=== PATIENT | female | born 1990 | race African-American/Black ===

== ENCOUNTER 2017-01-28 19:29 | Emergency (ER) | payer OTHER ==
[~2017-01-28] VITALS: Ht 162.6 cm; Wt 83.5 kg
[~2017-01-28 19:29] MED LIST: FER325 PO
[2017-01-28 19:35] VITALS: Ht 162.6 cm; Wt 83.5 kg
--- NOTE | 2017-01-28 20:13 | ERD ---
ER Documentation Chief Complaint Date/Time DATE: 01/28/17 TIME: 20:09 Chief Complaint 16 weeks , bleeding during intercorse, 1 hour ago, no pain HPI 26-year-old female who is 7, para 3, with history of 2 abortions and 1 miscarriage comes in, she states she thinks she is [id number] weeks with vaginal bleeding during and after it having intercourse today. She states she has mild to moderate bleeding with few clots, which has slowed down now. She has had an ultrasound at [facility] so far, she reports that the previous ultrasound was normal. There is no pain associated. She has not had any fevers, chills or dizziness. ROS All systems reviewed and are negative except as per history of present illness. Medications Home Meds Reported Medications Ferrous Sulfate* (Ferrous Sulfate*) 325 Mg Tabec, 1 MG PO DAILY, TAB 06/03/14 Allergies Allergies: Coded Allergies: No Known Allergy (Verified , 06/02/14) PMhx/Soc History of Surgery: Yes (C/SECTION X 2) Anesthesia Reaction: No Hx Neurological Disorder: No Hx Respiratory Disorders: No Hx Cardiac Disorders: No Hx Psychiatric Problems: No Hx Miscellaneous Medical Probl: No Hx Alcohol Use: Yes (ON OCCATION) Hx Substance Use: Yes (CANNABIS) Hx Tobacco Use: Yes Smoking Status: Never smoker Physical Exam Vitals Vital Signs Date Time Temp Pulse Resp B/P Pulse Ox O2 Delivery O2 Flow Rate FiO2 01/28/17 19:35 97.8 100 18 138/82 99 Physical Exam General: Well-developed, well-nourished. The patient appears in no acute distress. HEENT: Head is normocephalic, atraumatic. No scleral icterus. Neck: Supple. Nontender. Lungs: Clear to auscultation. Normal air movement. Heart: Regular rate and rhythm. S1 and S2 are normal. No murmurs, gallops, or rubs. Abdomen: Soft, nontender, nondistended. Bowel sounds are normoactive. Extremities: No clubbing or cyanosis. Normal pulses. Moving extremities x 4. No weakness. Neurologic: Alert and oriented 3. No focal deficits. Skin: Normal turgor. No rash or lesions. Result Diagram: 01/28/172024 Results 24 hrs Laboratory Tests Test 01/28/17 20:00 01/28/17 20:25 Urine Color YELLOW Urine Clarity SLIGHTLY CLOUDY Urine pH 6.0 Urine Specific [place] 1.025 Urine Ketones NEGATIVEmg/dL Urine Nitrite NEGATIVEmg/dL Urine Bilirubin NEGATIVEmg/dL Urine Urobilinogen NEGATIVEmg/dL Urine Leukocyte Esterase 2+Sanket/ul Urine Microscopic RBC > 182/HPF Urine Microscopic WBC 16/HPF Urine Squamous Epithelial Cells MODERATE/HPF Urine Bacteria FEW/HPF Urine Mucus FEW/HPF Urine Hemoglobin 3+mg/dL Urine Glucose NEGATIVEmg/dL Urine Total Protein 1+mg/dl White Blood Count 13.410^3/ul Red Blood Count 4.0410^6/ul Hemoglobin 11.3g/dl Hematocrit 33.8% Mean Corpuscular Volume 83.7fl Mean Corpuscular Hemoglobin 28.0pg Mean Corpuscular Hemoglobin Concent 33.4g/dl Red Cell Distribution Width 15.2% Platelet Count 15358^3/UL Mean Platelet Volume 9.3fl Neutrophils % 73.0% Lymphocytes % 18.9% Monocytes % 5.0% Eosinophils % 2.5% Basophils % 0.2% Nucleated Red Blood Cells % 0.0/100WBC Neutrophils # 9.810^3/ul Lymphocytes # 2.510^3/ul Monocytes # 0.710^3/ul Eosinophils # 0.310^3/ul Basophils # 0.010^3/ul Nucleated Red Blood Cells # 0.010^3/ul Beta HCG, Quantitative 45125.0mIU/ml DIAGNOSTIC IMAGING REPORT Patient: LOGAN JOSEPH : 1990 Age: 26 Sex: F MR #: [id number] DOS: 01/28/172000 Ordering MD: JOSE KO PA-C Location: [facility] Room/Bed: PROCEDURE: US OB. CLINICAL INDICATION: Size and dates , vaginal bleeding TECHNIQUE: Multiple sonographic images of the pelvis and gravid uterus were obtained. The images were reviewed on a PACS workstation. COMPARISON: No prior studies are available for comparison. FINDINGS: There is a single viable intrauterine gestation. Cardiac activity is present with 163 beats per minute. There is a variable presentation. The placenta is anterior. There is no evidence for an abruption or placenta previa. There is a normal amount of amniotic fluid with a MVP= 6.0 cm. Measurements were made in order to determine age. The results are as follows: BPD = 5.6 cm HC = 20.2 cm AC = 18.5 cm FL = 4.1 cm Estimated gestational age of approximately 23 weeks and 0 days based on ultrasound measurements. The estimated date of delivery is 05/27/17, based on ultrasound measurements. The EFW = 574 g RPTAT: AA IMPRESSION: Single viable intrauterine gestation of approximately 23 weeks and 0 days based on ultrasound measurements. .Yovanny Mckeon MD, MD Date Time Electronically viewed and signed by .Yovanny Mckeon MD, MD on 01/28/2017 20: 46 .S/ CC: JOSE KO PA-C Procedures/MDM 26-year-old female is found to be 23 weeks on ultrasound today coming in with vaginal bleeding after having intercourse today. Patient thought that she might of been less than 20 weeks, ultrasound shows a single live intrauterine . She will be discharged from the emergency department and will be sent to OB triage for further monitoring. Type and Rh is A+, no indication for RhoGam. Ultrasound is unremarkable, there is normal amniotic fluid, no placenta abruptio or previa. Departure Diagnosis: Primary Impression: Vaginal bleeding Condition: Stable JOSE KO PA-C Jan 28, 2017 20:13
[2017-01-28 20:36] LABS: BASOPHILS % 0.2 % (0.0-2.0); EOSINOPHILS # 0.3 10^3/ul (0.0-0.5); EOSINOPHILS % 2.5 % (0.0-7.0); HEMATOCRIT 33.8 % (37.0-47.0); HEMOGLOBIN 11.3 g/dl (12.0-16.0); LYMPHOCYTES # 2.5 10^3/ul (0.8-2.9); LYMPHOCYTES % 18.9 % (15.0-51.0); MEAN CORPUSCULAR HGB CONC 33.4 g/dl (32.0-37.0); MEAN CORPUSCULAR VOLUME 83.7 fl (82.0-101.0); MEAN PLATELET VOLUME 9.3 fl (7.4-10.4); MONOCYTE # 0.7 10^3/ul (0.3-0.9); NEUTROPHIL # 9.8 10^3/ul (1.6-7.5); PLATELET COUNT 287 10^3/UL (140-415); RED BLOOD COUNT 4.04 10^6/ul (4.20-5.40); RED CELL DISTRIBUTION WIDTH 15.2 % (11.5-14.5); WHITE BLOOD COUNT 13.4 10^3/ul (4.8-10.8)
[2017-01-28 20:44] LABS: ADD UMIC YES; UR ASCORBIC ACID NEGATIVE (NEGATIVE); UR BACTERIA FEW /HPF (NONE SEEN); UR BILIRUBIN (Dip) NEGATIVE (NEGATIVE); UR BLOOD (Dip) 3+ mg/dL (NEGATIVE); UR CLARITY SLIGHTLY CLOUDY (CLEAR); UR COLOR YELLOW (YELLOW); UR GLUCOSE (Dip) NEGATIVE (NEGATIVE); UR KETONES (Dip) NEGATIVE (NEGATIVE); UR LEUKOCYTE ESTERASE (Dip) 2+ Leu/ul (NEGATIVE); UR MUCUS FEW /HPF (NONE SEEN); UR NITRITE (Dip) NEGATIVE (NEGATIVE); UR RBC > 182 /HPF (0-5); UR SPECIFIC GRAVITY (Dip) 1.025 (1.003-1.030); UR SQUAMOUS EPITHELIAL CELL MODERATE /HPF (FEW); UR TOTAL PROTEIN (Dip) 1+ mg/dl (NEGATIVE); UR UROBILINOGEN (Dip) NEGATIVE (NEGATIVE)
--- NOTE | 2017-01-28 20:47 | RADRPT ---
PROCEDURE: US OB. CLINICAL INDICATION: Size and dates , vaginal bleeding TECHNIQUE: Multiple sonographic images of the pelvis and gravid uterus were obtained. The images were reviewed on a PACS workstation. COMPARISON: No prior studies are available for comparison. FINDINGS: There is a single viable intrauterine gestation. Cardiac activity is present with 163 beats per min jayson. There is a variable presentation. The placenta is anterior. There is no evidence for an abruption or placenta previa. There is a normal amount of amniotic fluid with a MVP= 6.0 cm. Measurements were made in order to determine age. The results are as follows: BPD =5.6 cm HC =20.2 cm AC =18.5 cm FL =4.1 cm Estimated gestational age of approximately 23 weeks and 0 days based on ultrasound measurements. The estimated date of delivery is 05/27/17, based on ultrasound measurements. The EFW = 574 g RPTAT: AA IMPRESSION: Single viable intrauterine gestation of approximately 23 weeks and 0 days based on ultrasound measu rements. .Yovanny Mckeon MD, MD Date Time Electronically viewed and signed by .Yovanny Mckeon MD, on 01/28/2017 20:46 .S/
== END 2017-01-28 22:29 | disposition home or self-care (01) ==
LOC: FTE 19:29
DX: O46.90 Antepartum hemorrhage, unspecified, unspecified trimester (principal); Z3A.23 23 weeks gestation of pregnancy; Z87.891 Personal history of nicotine dependence
CPT/HCPCS: 36415; 76805; 81001; 84702; 85025; 86900; 86901; Z7502

== ENCOUNTER 2017-01-28 22:35 | Outpatient (CLI) | payer OTHER ==
[~2017-01-28] VITALS: Ht 162.6 cm; Wt 83.1 kg
[2017-01-28 22:46] VITALS: BP 131/72; PULSE 60
[2017-01-28 23:11] VITALS: Ht 162.6 cm; Wt 83.1 kg
--- NOTE | 2017-01-28 23:53 | RADRPT ---
PROCEDURE: Obstetrical ultrasound greater than 14 weeks CLINICAL INDICATION: Vaginal bleeding. Evaluate cervical length TECHNIQUE: Real time sonographic imaging of the gravid uterus is performed transabdominally and im ages of the cervix are submitted to the PACS for review COMPARISON: Obstetrical ultrasound 01/28/2017 FINDINGS: The cervical os is closed with a normal cervical length of 3.6 cm. RPTAT:HJJR IMPRESSION: 1. Single viable intrauterine gestation with the cervical length estimated at 3.6 cm. Physician Latanya Date Time Electronically viewed and signed by Physician Latanya on 01/28/2017 23:53 JR/
--- NOTE | 2017-01-29 01:20 | PN ---
Triage Information Date/Time January 29, 2017 Weeks of Gestation 23w by US, as no care. : 7 Para: 3 Diabetes: none Hypertention: none Additional information Pt came in reporting vaginal bleeding after intercourse. POBHx: term IUP x 1, delivery under 30 weeks x 2. PMHx: none. PSHx: none. NKDA Objective Vital Signs Date Time Temp Pulse Resp B/P Pulse Ox O2 Delivery O2 Flow Rate FiO2 01/28/17 22:46 98.0 60 131/72 Room Air Heart Rate: 130's Contractions: None Exam US: jorgensen. Anterior placenta. No evidence of abruption or previa. Normal GUSTAVO with a MVP of 6. EFW 574 grams c/w 23 weeks. Cx length 3.6 cm and closed. No evidence of bleeding since the pt has been here. Assessment/Plan A: IUP at 23 weeks. No care. Postcoital bleeding. P: D/C home. Pelvic rest x 4 weeks. Pt strongly encouraged to seek care as there are things that can be done to possibly help her keep from having a baby early that cannot be done in the OB Triage setting. HARDEEP PASCAL MD Jan 29, 2017 01:20
--- NOTE | 2017-01-29 02:33 | TRIAGE ---
OB Triage Datetime Report Generated by CPN: 01/29/2017 02:32 Datetime: 01/29/2017 01:06 Stage of : OB Triage Labor Evaluation Frequency: 0 Monitor Mode: External Resting Tone [place]: Relaxed Datetime: 01/28/2017 22:58 Assessment Type: Triage Maternal Assessment Level of Consciousness: Fully Conscious DTR's/Clonus: DTRs 2+; No Clonus Headache: Denies Blurred Vision: No Respiratory Effort: Unlabored; Regular Rhythm; Equal Expansion Breath Sounds, Left: Clear and Equal Breath Sounds, Right: Clear and Equal Nausea/Vomiting: Denies RUQ Epigastric Pain: Denies Lower Extremities Edema: None Degree: None Upper Extremities Edema: None Degree: None Facial Edema: None Fall Risk Assessment History of Falling: (0) No Secondary Diagnosis: (0) No Ambulatory Aid: (0) Bedrest/Nurse Assist IV Therapy: (0) No Gait: (0) Normal/Bedrest/Immobile Mental Status: (0) Oriented to Own Ability Fall Score: 0 Fall Risk Score Definition: No Risk: No action required Datetime: 01/28/2017 22:57 EGA: 23.0 Datetime: 01/28/2017 22:30 Time of Arrival: 01/28/2017 22:30 Arrived By: Wheelchair Arrived From: Emergency Dept Chief Complaint: VAGINAL BLEEDING P SEXUAL INTERCOURSE Movement: Present Contractions: Denies/Absent Rupture of Membranes: Denies Vaginal Bleeding: None Vaginal Discharge: Present Recent Sexual Intercouse: Yes Abdominal Trauma: Not Applicable Patient Complaints: Other Additional Patient Complaints: Pt with no pncr pnc was seen in ER prior to being sent to ob triage . UA, 2nd/3rd trim U/S done in ER. Initial Plan: VS, DOPPLER, TOCO,, CL
== END 2017-01-29 01:35 | disposition home or self-care (01) ==
LOC: OBT 22:35 → L-D 22:40 → OBT 01-29 01:35
PROVIDERS: ATTEND Obstetrics & Gynecology
DX: O46.8X2 Other antepartum hemorrhage, second trimester (principal); Z3A.23 23 weeks gestation of pregnancy
CPT/HCPCS: 76817; Z7500; G0463

== ENCOUNTER 2017-02-28 06:20 | Inpatient (IN) | payer OTHER ==
[~2017-02-28] VITALS: Ht 162.6 cm; Wt 83.1 kg
[2017-02-28] VITALS (7 sets, daily range): BP systolic 108–131; BP diastolic 54–79; PULSE 55–90; RESP 18–22; Ht 162.6 cm; Wt 83.1 kg
[2017-02-28] MEDS ORDERED: LACTATED RINGER'S 1,000 ML IV SCH (06:51)
[2017-02-28] MEDS ORDERED: TERBUTALINE 1 ML ONE (06:59)
[2017-02-28] MEDS ORDERED: AMPICILLIN 2 GM/NS (PMX) 100 ML IV ONE ×2 (07:00→10:00)
[2017-02-28] MEDS ORDERED: LIDOCAINE 1% (MPF) 30 ML INJ INJ PRN ×2 (07:00→10:00)
[2017-02-28] MEDS ORDERED: CARBOPROST 250 MCG INJ IM PRN ×2 (07:00→10:00)
[2017-02-28] MEDS ORDERED: METHYLERGONOVINE 0.2 MG INJ IM PRN ×2 (07:00→10:00)
[2017-02-28] MEDS ORDERED: TERBUTALINE 1 MG/ML INJ SC ONE ×2 (07:00→10:00)
[2017-02-28] MEDS ORDERED: OXYTOCIN 30 UNITS/LR 500 ML IV PRN ×2 (07:00→10:00)
[2017-02-28] MEDS ORDERED: MAGNESIUM SULFATE 4 GM/100 ML 100 ML IV ONE ×2 (07:00→10:00)
[2017-02-28] MEDS ORDERED: OXYTOCIN 30 UNITS/LR 500 ML IV SCH ×4 (07:00→10:00)
[2017-02-28] MEDS ORDERED: MISOPROSTOL 200 MCG TAB PR PRN ×2 (07:00→10:00)
[2017-02-28] MEDS ORDERED: BETAMET NA PHOS/AC(6 MG/ML) 5ML INJ IM SCH ×4 (07:30→10:00)
[2017-02-28] MEDS ORDERED: MAGNESIUM SULFATE 20 GM/500 ML 500 ML IV SCH ×2 (07:30→09:51)
--- NOTE | 2017-02-28 07:35 | TRIAGE ---
OB Triage Datetime Report Generated by CPN: 02/28/2017 07:35 Datetime: 02/28/2017 07:00 Stage of : OB Triage Temperature Route: Oral Labor Evaluation Frequency: IRREG Monitor Mode: External Quality: Moderate Pattern: Normal: <= 5 Contractions in 10 Minutes Resting Tone [place]: Relaxed Heart Rate FHR Baseline Rate: 150 Monitor Mode: External US Variability: Moderate 6-25 bpm Accelerations: 15X15 Decelerations: Variable Category: Category II Pain Assessment Pain Scale: 9 Pain Presence: Intermittent Pain Type: Crushing Pain Location: Abdomen Pain Goal: 3 Pain Relief Measures: Comfort Measures Datetime: 02/28/2017 06:46 Vaginal Exam Dilatation (cms): 3.5 Effacement (%): 90 Station: -1 Exam By: JUSTINE Vaginal Bleeding: None Cervix, Consistency: Soft Cervix, Position: Posterior Datetime: 02/28/2017 06:40 Assessment Type: Triage Maternal Assessment Level of Consciousness: Fully Conscious DTR's/Clonus: DTRs 2+; No Clonus Headache: Denies Blurred Vision: Yes Respiratory Effort: Unlabored Breath Sounds, Left: Clear and Equal Breath Sounds, Right: Clear and Equal Nausea/Vomiting: Denies RUQ Epigastric Pain: Denies Lower Extremities Edema: None Degree: None Upper Extremities Edema: None Degree: None Facial Edema: None Fall Risk Assessment History of Falling: (0) No Secondary Diagnosis: (15) Yes (Annotations: C/S X2 HX OF DRUG ABUSE, METHAMPHETAMINES, MARIJUANA) Ambulatory Aid: (0) Bedrest/Nurse Assist IV Therapy: (0) No Gait: (20) Impaired (Annotations: SEVERE PAIN FROM [facility]) Mental Status: (0) Oriented to Own Ability Fall Score: 35 Fall Risk Score Definition: Low Risk: Please see standard fall prevention interventions Datetime: 02/28/2017 06:39 Arrived By: Wheelchair Arrived From: Home Chief Complaint: SROM SINCE 02/27/17 AT 0300 AND CXS JUST STARTED Movement: Present Time Contractions Began: 02/27/2017 03:00 Rupture of Membranes: Ruptured Vaginal Bleeding: None Time Provider Notified: 02/28/2017 06:40 Provider Notified: BOO Initial Plan: EFM,ASSESSMENT, CALL MD FOR ORDERS Datetime: 01/29/2017 00:53 Stage of : OB Triage Datetime: 01/29/2017 00:00 Labor Evaluation Frequency: 0 Monitor Mode: External Resting Tone [place]: Relaxed Contraction Comments: pt states cramping is gone. Abdomen remains soft to palpation. Waiting for r esults of U/S Datetime: 01/28/2017 22:58 Fall Score: 0 Fall Risk Score Definition: No Risk: No action required Datetime: 01/28/2017 22:57 EGA: 23.0 Datetime: 01/28/2017 22:49 Heart Rate FHR Baseline Rate: 150 Monitor Mode: External US Comments: FHTS present, audible. Datetime: 01/28/2017 22:48 Monitor Mode: External Resting Tone [place]: Relaxed Contraction Comments: Applied Datetime: 01/28/2017 22:44 Stage of : OB Triage
[2017-02-28] MEDS ORDERED: TERBUTALINE 1 MG/ML INJ SC STA ×2 (07:38→09:51)
[2017-02-28 07:39] LABS: ADD UMIC YES; UR AMORPHOUS CRYSTAL FEW /HPF (NONE SEEN); UR ASCORBIC ACID NEGATIVE (NEGATIVE); UR BILIRUBIN (Dip) NEGATIVE (NEGATIVE); UR BLOOD (Dip) NEGATIVE (NEGATIVE); UR CLARITY SLIGHTLY CLOUDY (CLEAR); UR COLOR YELLOW (YELLOW); UR GLUCOSE (Dip) NEGATIVE (NEGATIVE); UR KETONES (Dip) NEGATIVE (NEGATIVE); UR LEUKOCYTE ESTERASE (Dip) 2+ Leu/ul (NEGATIVE); UR MUCUS FEW /HPF (NONE SEEN); UR NITRITE (Dip) NEGATIVE (NEGATIVE); UR RBC 1 /HPF (0-5); UR SQUAMOUS EPITHELIAL CELL FEW /HPF (FEW); UR TOTAL PROTEIN (Dip) NEGATIVE (NEGATIVE); UR UROBILINOGEN (Dip) 1+ mg/dL (NEGATIVE)
--- NOTE | 2017-02-28 07:48 | RADRPT ---
PROCEDURE: US OB. CLINICAL INDICATION: labor TECHNIQUE: Multiple sonographic images of the pelvis were obtained. Transabdominal imaging only w as performed. The images were reviewed on a PACS workstation. COMPARISON: 01/28/2017 FINDINGS: Single intrauterine gestation. Breech presentation. heart rate is 128 bpm. Measurements were made in order to determine age. The results are as follows: BPD = 6.83 cm HC = 24.05 cm AC = 22.46 cm FL = 4.57 cm Gestational age is 26 weeks 3 days and DIEGO is 06/03/2017 by ultrasound criteria. EFW = 909 g +/- 136 g (7 %). The placenta is anterior. There is no evidence for an abruption or placenta previa. GUSTAVO measures 0.9 cm, below normal limits. IMPRESSION: 1. Single live intrauterine gestation of approximately 26 weeks 3 days by ultrasound criteria. 2. Breech presentation. 3. Severe oligohydramnios. RPTAT: EE .Inder Gates MD, MD Date Time Electronically viewed and signed by .Inder Gates MD, MD on 02/28/2017 07:48 .R/
[2017-02-28] MEDS ORDERED: MAGNESIUM SULFATE (GM) 50% 2 ML INJ IM STA ×2 (07:49→09:51)
[2017-02-28] MEDS ORDERED: CEFAZOLIN 2 GM/50 ML (PMX) 50 ML IV STA (07:51)
[2017-02-28] MEDS ORDERED: CEFAZOLIN 2 GM/50 ML (PMX) 50 ML IVPB ONE (07:52)
[2017-02-28] MEDS ORDERED: NEOSTIGMINE 3 MG/3 ML SYRINGE ONE (08:00)
[2017-02-28] MEDS ORDERED: CEFAZOLIN 1 GM INJ ONE (08:00)
[2017-02-28] MEDS ORDERED: LACTATED RINGER'S 1,000 ML IV PRN ×2 (08:00→09:51)
[2017-02-28] MEDS ORDERED: SUCCINYLCHOLINE CHLORIDE 100 MG/5 ML SYG IV ONE (08:00)
[2017-02-28] MEDS ORDERED: LIDOCAINE 2% (SDV) 5 ML INJ ONE (08:00)
[2017-02-28] MEDS ORDERED: PROPOFOL 200 MG INJ ONE (08:00)
[2017-02-28] MEDS ORDERED: morphine 10 MG INJ ONE (08:11)
[2017-02-28 08:32] LABS: BARBITURATES Negative (NEGATIVE); BENZODIAZEPINES Negative (NEGATIVE); CANNABINOIDS Positive (NEGATIVE); COCAINE Negative (NEGATIVE); OPIATES Negative (NEGATIVE)
[2017-02-28] MEDS ORDERED: DEXAMETHASONE 4 MG/ML 1 ML INJ ONE (08:52)
[2017-02-28] MEDS ORDERED: ONDANSETRON 4 MG INJ ONE (08:53)
[2017-02-28] MEDS ORDERED: GLYCOPYRROLATE 0.4 MG INJ ONE (08:54)
[2017-02-28 09:27] LABS: ABNORMAL IP MESSAGE 1; HEMATOCRIT 26.9 % (37.0-47.0); HEMOGLOBIN 9.2 g/dl (12.0-16.0); MEAN CORPUSCULAR HEMOGLOBIN 28.3 pg (29.0-33.0); MEAN CORPUSCULAR HGB CONC 34.2 g/dl (32.0-37.0); MEAN CORPUSCULAR VOLUME 82.8 fl (82.0-101.0); MEAN PLATELET VOLUME 9.5 fl (7.4-10.4); PLATELET COUNT 227 10^3/UL (140-415); RED BLOOD COUNT 3.25 10^6/ul (4.20-5.40); RED CELL DISTRIBUTION WIDTH 13.7 % (11.5-14.5); WHITE BLOOD COUNT 28.8 10^3/ul (4.8-10.8)
[2017-02-28 09:29] LABS: POSITIVE DIFF @See below
[2017-02-28] MEDS ORDERED: FENTAnyl 50 MCG/ML VIAL IV PRN ×6 (09:30→10:00)
[2017-02-28] MEDS ORDERED: DIPHENHYDRAMINE 50 MG INJ IV PRN ×2 (09:30→10:00)
[2017-02-28] MEDS ORDERED: ONDANSETRON 4 MG INJ IV PRN ×2 (09:30→10:00)
[2017-02-28] MEDS ORDERED: EPHEDrine SULFATE 50 MG/5 ML SYG IV PRN ×2 (09:30→10:00)
[2017-02-28] MEDS ORDERED: OXYCODONE/ACETAMINOPHEN (5/325) TAB PO PRN ×4 (09:30→10:00)
[2017-02-28] MEDS ORDERED: hydrALAzine 20 MG INJ IV PRN ×2 (09:30→10:00)
[2017-02-28] MEDS ORDERED: morphine (1 MG/ML) 10ML SYRINGE IV PRN ×6 (09:30→10:00)
[2017-02-28] MEDS ORDERED: KETOROLAC 30 MG INJ IV PRN ×3 (09:30→13:30)
[2017-02-28] MEDS ORDERED: MEPERIDINE 25 MG INJ IV PRN ×2 (09:30→10:00)
[2017-02-28] MEDS ORDERED: LABETALOL HCL 20MG INJ IV PRN ×2 (09:30→10:00)
--- NOTE | 2017-02-28 09:36 | HP ---
Date/Time of Note Date/Time of Note DATE: 02/28/17 TIME: 09:15 OB - History Hx of Present Free Text/Dictation 26-year-old with IUP at 27 weeks and 3 days by ultrasound done on January when the patient presented to [facility] due to PPROM at 3 : 00 am on 02/27/2017 after intercourse . Had gush of fluid. Her contractions started after PPROM and she presented > 24 hours after PPROM and contractions. Hospital presented with complaint of uterine contractions. She was noted to be in labor. She was 3 and half centimeter 90% effaced. She had spontaneous rupture membrane since 3: 00 am. Patient had no care. Her dating is based on on the ultrasound that was done on January 28, 2017. She had history of amphetamine, cocaine and marijuana use and her U tox was positive in 2002. Patient complaining of abdominal pain and was noted to have regular contractions. She rapidly progressed to 6-7 cm. Past OB history significant for history of 2. Patient had a TOLAC that was due to precipitous delivery when she presented to labor and delivery. There was a problem with getting IV line due to not having appropriate vein for IV fluid. The patient was in triage and noted that heart tracing dropped down to 70-80s. Due to nonreassuring heart tracing as well as breech presentation noted in the ultrasound and active labor with history of section 2 patient was consented regarding emergency section. She was wheeled back to the OR. While in the OR anesthesiologist was attempting to get the IV line and eventually could be able to get the IV from the jugular vein. Patient was receiving oxygen during all this time. NICU team and OR and nursing team was presented. On the way to the OR risk and benefits of section including risk of infection and bleeding and damage to adjacent structures and risk of possible blood transfusion were discussed with the patient. Patient verbalized understanding and agreed to have repeat section. Estimated Due Date: May 27, 2017 : 7 Para: 3 Spontaneous : 2 Therapeutic : 1 Care: None Abnormal Ultrasound Findings: Done on January 28, 2017. DIEGO by only ultrasound May 17, 2017. Patient had a ultrasound while in triage waiting to get the IV line prior to taking the patient to the back that showed breech presentation. heart rate was in 80s 200s while in triage and while anesthesiologist Dr. Quintanilla was attempting and trying to get the IV line. There was difficulty in taking the IV line due to sclerosing wanes. Bedside ultrasound confirmed heart rate that was bradycardia. At this point patient was wheeled back to the OR for emergency section. Urine toxicology in this visit was positive for marijuana and amphetamine Exam prior to be taken to the back was 7 cm 90% +1 moraima breech presentation. Past Family/Social History * Past Medical, Surgical, Family and Obstetric Histories reviewed from chart. 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, 1 TAB 2 section 1 TOLAC after last section due to precipitous delivery when the patient presented in full dilatation to labor and delivery OB Admission Exam Vital Signs Vital Signs Vital Signs Date Time Temp Pulse Resp B/P Pulse Ox O2 Delivery O2 Flow Rate FiO2 02/28/17 06:36 98.1 90 22 131/72 Room Air Physical Exam HEENT: WNL (Patient is in acute distress due to pain and contractions) Heart: Rhythm Normal Lungs: Clear Abdomen: WNL (Size consistent with dates.) Extremities: Normal Reflexes: Normal Cervical Dilatation: 7cm Effacement: 100% Station: +1 Membranes: Ruptured ( heart tracing 70s-100. Category 2) Decelerations: Prolonged Decelerations Varibility: Moderate Contractions on Admission: < 5 Minutes Apart Intensity: Firm OB Assessment/Plan Other Assessment: IUP at 27 weeks and 3 days by patient best DIEGO based on only ultrasound done at 23 weeks No care History of substance abuse. 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 History of section 2. TOLAC x 1 due to precipitous delivery when presented to the hospital. PPROM > 24 hours ago PTL started after PPROM Patient presented late to L&D when she had abdominal pain and was in active labor. Diffuculty obtaining IV line. Hard stick. sclerosing veins Discussed with the patient regarding emergency section due to prolonged deceleration and nonreassuring heart tracing as well as breech presentation in active labor Risk and benefit of section including risk of infection, bleeding damage to adjacent structures including fetus discussed on the way to the OR informed consent was obtained. Patient received a dose of betamethasone IM 1 In the OR anesthesiologist was able to place the IV line through the left jugular vein. Patient received a dose of terbutaline prior to be taken to the OR due to persistent contractions. Received a dose of prophylactic antibiotic in the OR NICU team and nursing team were available in the OR lead assistant manager second call on his way, Patient was prepared for general anesthesia due to emergency nature of the procedure. TRE OCASIO MD Feb 28, 2017 09:27
[2017-02-28 09:46] LABS: INR 1.03; PROTIME 13.5 Sec (12.2-14.2); PT RATIO 1.1
[2017-02-28 09:47] LABS: PARTIAL THROMBOPLASTIN TIME 29.7 Sec (25.0-35.0)
[2017-02-28] MEDS ORDERED: CEFAZOLIN 2 GM/50 ML (PMX) 50 ML IVPB STA (09:51)
[2017-02-28] MEDS: LACTATED RINGER'S 1,000 ML IV SCH ×3 (09:51→23:33)
--- NOTE | 2017-02-28 09:51 | OPR ---
Operative Report Planned Procedure Free Text/Dictation Patient was taken to the OR for emergency section due to nonreassuring heart tracing and breech presentation in active labor with history of section 2 Prolonged rupture of membrane more than 24 hours Urine toxicology positive for cocaine and marijuana Insufficient care Procedure date Feb 28, 2017 Procedure(s) Emergency low transverse section through the Pfannenstiel skin incision Performed by: TRE OCASIO MD Assisting provider: CONCHIS ALEGRIA MD Anesthesiologist: FIDEL ALTMAN Pre-procedure diagnosis 1. IUP at 27 weeks and 3 days 2 prolonged rupture membrane. More than 24 hours. 3 active labor. 4. History of section 2. Status post GIUSEPPE AC 1 5. No care 6. History of substance abuse, marijuana, cocaine and methamphetamine 7. Positive urine toxicology for methamphetamine and marijuana 8. Prolonged deceleration. bradycardia 9. Breech presentation 10. Difficulty obtaining IV line . eventually anesthesiologist could be able to place the left jugular IV line in the OR. Procedure Description Patient was taken to the OR when heart rate was noted to be in 70s-80s confirmed by bedside quick ultrasound, Patient was in moraima breech presentation. Exam 7/90%/ +1 . ROM noted in exam Bedside ultrasound confirmed breech presentation as well Could not be able to obtain IV line after many attempts with peripheral veins by nursing staff as well as anesthesiologist. Patient was in the way to the OR. Eventually could be able to get the IV line to the left jugular vein plan was to proceed with emergent section. Patient received a dose of steroid prior to be taken to the OR. She also received prophylactic antibiotic for surgical procedure in the OR After obtaining IV line patient was placed under general adequate endotracheal tube. Prepped and draped in a sterile fashion with Betadine splash first the skin was opened using scalpel and the prior scar was carried down to the underlying layer of fascia using scalpel.. Then the superior aspect of the fascial incision was grasped to Francesca, and was elevated and was dissected from underlying rectus muscle using Moy scissors. Rectus muscle dissected in the midline and intra-abdominal cavity entered Without any complication. Bladder flap was created. Lower uterine segment was incised transversely. The baby is breech part was grasped and was brought up to the incision and was delivered without any complication. After delivery of the baby a superficial skin laceration was noted on the torso of the baby and the right flank area that was superficial and was about 3 cm long. Baby's cord was clamped and cut and was immediately handed baby to the waiting NICU team. The area of superficial skin laceration was reapproximated using Dermabond. Hemostasis was excellent. While the baby was under resuscitation and intubation by the NICU team, gloves and gown was changed. Entered to the operating field again. Cord gas was obtained and was sent. Placenta was delivered using manual extraction and was sent to pathology. Uterine cavity was entered and was cleaned from all clots and debris's. The uterine incision was then repaired in 2 layers using 1-0 Monocryl. The first layer used for hemostasis and the second layer used for imbrication. excellent hemostasis of the uterine incision was obtained.. The gutters were cleared of all clots and debris. Then after assurance about excellent hemostasis the parietal peritoneum was repaired using 2-0 Vicryl in continuous fashion. Lap counts and needle counts were correct prior to closure of the parietal peritoneum Then the fascia was reapproximated using 1 Vicryl in a continuous fashion.-0 Irrigation of subcutaneous tissue was obtained using copious amounts of warm normal saline. Hemostasis of the subcutaneous tissue was obtained using Bovie Subcu tissue was reapproximated using 2 oh plain gut. Skin was reapproximated using Endsorb and with Steri-Strips. Pressure dressing was applied over the skin. Lap count and needle count and sponge count were correct again 2. Patient tolerated the procedure well and was transferred to recovery room in stable condition baby's Was 4/7/8. Weight 2 pound and 8 ounce. Post-Procedure Findings: Live viable baby in moraima breech presentation. Apgars 4/7/8, weight [2 lbs. 8 oz.], position [breech, moraima], [] presentation [] cord blood and cord gas was obtained There was a superficial skin laceration in the right side of the torso on the baby , occurred during incision due to lack of amniotic fluid as well as clamped uterus over the babies of structures, as well as thin lower uterine segment this area was reapproximated using Dermabond and excellent hemostasis was obtained.. NICU team are aware Specimen removed: Yes Specimen description Cord blood Cord gas Placenta was sent to pathology Complications Superficial skin laceration on the Right side of the torso about 3 cm long. Reapproximated using Dermobond. Pt Condition post procedure: stable Disposition: PACU Physician Certification I, the undersigned physician, hereby certify that I have discussed the procedure described in this consent form with this patient (or the patient's legal medicare sales representative), including: * The risk and benefits of the procedure; * Any adverse reactions that may reasonably be expected to occur; * Any alternative efficacious methods of treatment which may be medically viable ; * The potential problems that may occur during recuperation; * Potential for blood transfusion and associated risks/benefits; and * Any research or economic interest I may have regarding this treatment. I further certify that the patient/legally responsible person was encouraged to ask question and that all questions were answered. TRE OCASIO MD Feb 28, 2017 09:47
[2017-02-28 09:55] LABS: ALANINE AMINOTRANSFERASE 27 IU/L (13-69); ALBUMIN 2.5 g/dl (3.3-4.9); ALBUMIN/GLOBULIN RATIO 0.86; ALKALINE PHOSPHATASE 99 IU/L (42-121); ANION GAP 15 (8-16); ASPARTATE AMINO TRANSFERASE 14 IU/L (15-46); BLOOD UREA NITROGEN 8 mg/dl (7-20); CALCIUM 8.3 mg/dl (8.4-10.2); CARBON DIOXIDE 22 mmol/L (21-31); CHLORIDE 101 mmol/L (97-110); CREATININE 0.47 mg/dl (0.44-1.00); GLUCOSE 128 mg/dl (70-220); POTASSIUM 3.4 mmol/L (3.5-5.1); SODIUM 135 mmol/L (135-144); TOTAL PROTEIN 5.4 g/dl (6.1-8.1); URIC ACID 2.7 mg/dl (3.1-7.9)
[2017-02-28 10:49] LABS: ANISOCYTOSIS 1+ (0-0); METAMYELOCYTES %M 2 % (0-0); MICROCYTOSIS 1+ (0-0); MONOCYTES % (M) 4 % (0-11); PLATELET ESTIMATE NORMAL; POLYCHROMASIA 1+ (0-0)
[2017-02-28] MEDS ORDERED: AMPICILLIN 1 GM/NS (PMX) 50 ML IV SCH ×2 (11:00)
[2017-02-28 14:09] LABS: INR 0.96; PROTIME 12.8 Sec (12.2-14.2)
[2017-02-28 14:15] LABS: ALBUMIN 3.2 g/dl (3.3-4.9); BILIRUBIN,INDIRECT 0.2 mg/dl (0-1.1); BILIRUBIN,TOTAL 0.2 mg/dl (0.2-1.3); CALCIUM 8.3 mg/dl (8.4-10.2); CREATININE 0.45 mg/dl (0.44-1.00); POTASSIUM 4.1 mmol/L (3.5-5.1); TOTAL PROTEIN 6.4 g/dl (6.1-8.1); URIC ACID 2.7 mg/dl (3.1-7.9)
[2017-02-28 14:46] LABS: ADD UMIC YES; UR ASCORBIC ACID NEGATIVE (NEGATIVE); UR BILIRUBIN (Dip) NEGATIVE (NEGATIVE); UR BLOOD (Dip) NEGATIVE (NEGATIVE); UR CLARITY CLEAR (CLEAR); UR COLOR YELLOW (YELLOW); UR GLUCOSE (Dip) 1+ mg/dL (NEGATIVE); UR KETONES (Dip) TRACE mg/dL (NEGATIVE); UR LEUKOCYTE ESTERASE (Dip) TRACE Leu/ul (NEGATIVE); UR NITRITE (Dip) NEGATIVE (NEGATIVE); UR RBC 13 /HPF (0-5); UR SPECIFIC GRAVITY (Dip) 1.024 (1.003-1.030); UR TOTAL PROTEIN (Dip) NEGATIVE (NEGATIVE); UR UROBILINOGEN (Dip) NEGATIVE (NEGATIVE)
[2017-02-28] MEDS: IBUPROFEN 600 MG TAB PO SCH (23:40)
[2017-03-01 03:45] VITALS: BP 118/66; PULSE 65; RESP 18
[2017-03-01] MEDS: IBUPROFEN 600 MG TAB PO SCH ×4 (05:41→23:19)
[2017-03-01] MEDS: LACTATED RINGER'S 1,000 ML IV SCH (06:35)
[2017-03-01 07:35] VITALS: BP 133/82; PULSE 70; RESP 20
[2017-03-01] MEDS: SENNA/DOCUSATE NA (8.6MG/50MG) TAB PO SCH ×2 (08:56→21:50)
--- NOTE | 2017-03-01 11:36 | PN ---
Date/Time of Note Date/Time of Note DATE: 03/01/17 TIME: 11:31 OB Subjective Subjective Subjective Post C section day 1 Afebrile Ambulatory Chest Clear Breasts are soft , Nipples are intact Abdomen is soft Fundus is firm Moderate amount of lochia Incision is clean ,No evidence of infection No calf tenderness No ankle edema not breast feeding the new born History of drug addiction. Refused blood test for screening Refused repeating blood test for hemoglobin and hematocrit Laboratory Tests Test 02/28/17 13:45 02/28/17 14:15 Prothrombin Time 12.8Sec Prothrombin Time Ratio 1.0 INR International Normalized Ratio 0.96 Activated Partial Thromboplast Time 26.0Sec Fibrinogen 517.0mg/dl Sodium Level 131mmol/L Potassium Level 4.1mmol/L Chloride Level 102mmol/L Carbon Dioxide Level 22mmol/L Anion Gap 11 Blood Urea Nitrogen 7mg/dl Creatinine 0.45mg/dl Glucose Level 126mg/dl Uric Acid 2.7mg/dl Calcium Level 8.3mg/dl Total Bilirubin 0.2mg/dl Direct Bilirubin 0.00mg/dl Indirect Bilirubin 0.2mg/dl Aspartate Amino Transf (AST/SGOT) 26IU/L Alanine Aminotransferase (ALT/SGPT) 32IU/L Alkaline Phosphatase 101IU/L Total Protein 6.4g/dl Albumin 3.2g/dl Globulin 3.20g/dl Albumin/Globulin Ratio 1.00 Urine Color YELLOW Urine Clarity CLEAR Urine pH 6.0 Urine Specific [place] 1.024 Urine Ketones TRACEmg/dL Urine Nitrite NEGATIVEmg/dL Urine Bilirubin NEGATIVEmg/dL Urine Urobilinogen NEGATIVEmg/dL Urine Leukocyte Esterase TRACELeu/ul Urine Microscopic RBC 13/HPF Urine Microscopic WBC 5/HPF Urine Hemoglobin NEGATIVEmg/dL Urine Glucose 1+mg/dL Urine Total Protein NEGATIVEmg/dl Current Medications Medications (Trade) Dose Ordered Sig/Patricia Route PRN Reason Start Time Stop Time Status Last Admin Dose Admin Lactated Ringer's 1,000 ml @ 125 mls/hr Q8H IV 02/28/17 06:51 02/28/17 11:48 DC 02/28/17 07:37 Ampicillin 100 ml @ 100 mls/hr ONCE ONCE IV 02/28/17 07:00 02/28/17 11:55 DC Ampicillin (Ampicillin 1 Gm/ NS (Pmx)) 50 ml @ 100 mls/hr Q4H IV 02/28/17 11:00 02/28/17 11:49 DC Lidocaine 30 ml 30 ml ONCE PRN INJ EPISIOTOMY/TEARING 02/28/17 07:00 02/28/17 11:49 DC Oxytocin/Lactated Ringer's 500 ml @ 125 mls/hr ONCE -MAY REPEAT X1 IV 02/28/17 07:00 02/28/17 11:49 DC 02/28/17 09:18 Oxytocin/Lactated Ringer's 500 ml @ 125 mls/hr ONCE IV 02/28/17 07:00 02/28/17 11:49 DC Lactated Ringer's 1,000 ml @ 2,000 mls/hr Q30M PRN IV PRE-EPIDURAL BOLUS 02/28/17 08:00 02/28/17 11:49 DC Oxytocin/Lactated Ringer's 500 ml @ 0 mls/hr ONCE PRN IV For Hemorrhage Management 02/28/17 07:00 02/28/17 11:49 DC Methylergonovine Maleate (Methergine) 0.2 mg ONCE PRN IM VAGINAL BLEEDING 02/28/17 07:00 02/28/17 11:49 DC Carboprost Tromethamine (Hemabate) 250 mcg ONCE PRN IM VAGINAL BLEEDING 02/28/17 07:00 02/28/17 11:49 DC Misoprostol 1000 mcg 1,000 mcg ONCE PRN VT VAGINAL BLEEDING 02/28/17 07:00 02/28/17 11:49 DC Magnesium Sulfate 100 ml @ 200 mls/hr ONCE ONCE IV 02/28/17 07:00 02/28/17 11:55 DC Magnesium Sulfate (Magnesium Sulfate 20 Gm/500 ml) 500 ml @ 50 mls/hr Q10H IV 02/28/17 07:30 02/28/17 11:49 DC Terbutaline Sulfate (Brethine) 0.25 mg ONCE ONCE SC 02/28/17 07:00 02/28/17 13:21 DC 02/28/17 07:01 Betamethasone Acet/Betameth SodPhos 12 mg 12 mg Q12 IM 02/28/17 09:00 02/28/17 09:00 DC Terbutaline Sulfate (Brethine) 1 ml @ [facility] ONCE .ROUTE 02/28/17 06:59 02/28/17 07:00 DC Betamethasone Acet/Betameth SodPhos (Celestone Soluspan) 12 mg Q12H IM 02/28/17 07:30 02/28/17 11:48 DC 02/28/17 07:37 Terbutaline Sulfate (Brethine) 0.25 mg ONCE STAT SC 02/28/17 07:38 02/28/17 13:21 DC 02/28/17 07:33 Magnesium Sulfate 4 gm 4 gm ONCE STAT IM 02/28/17 07:49 02/28/17 13:21 DC Cefazolin Sodium/ Dextrose 50 ml @ ud STK-MED ONCE IVPB 02/28/17 07:52 02/28/17 07:53 DC Cefazolin Sodium/ Dextrose (Ancef 2 Gm/50 ml (Pmx)) 50 ml @ 100 mls/hr ONCE STAT IV 02/28/17 07:51 02/28/17 08:20 DC Morphine Sulfate (morphine) 10 mg STK-MED ONCE .ROUTE 02/28/17 08:11 02/28/17 08:12 DC Dexamethasone (Decadron) 4 mg STK-MED ONCE .ROUTE 02/28/17 08:52 02/28/17 08:53 DC Ondansetron HCl (Zofran Inj) 4 mg STK-MED ONCE .ROUTE 02/28/17 08:53 02/28/17 08:54 DC Glycopyrrolate (Robinul) 0.4 mg STK-MED ONCE .ROUTE 02/28/17 08:54 02/28/17 08:55 DC Morphine Sulfate (morphine (REC)) 2 mg PACU ORDER PRN IV MILD PAIN LEVEL 1-3 02/28/17 09:30 02/28/17 11:48 DC Morphine Sulfate (morphine (REC)) 4 mg PACU ORDER PRN IV MODERATE PAIN LEVEL 4-6 02/28/17 09:30 02/28/17 11:48 DC Morphine Sulfate (morphine (REC)) 6 mg PACU ORDER PRN IV SEVERE PAIN LEVEL 7-10 02/28/17 09:30 02/28/17 11:48 DC Fentanyl (Sublimaze) 25 mcg PACU ORDER PRN IV MILD PAIN LEVEL 1-3 02/28/17 09:30 02/28/17 11:48 DC Fentanyl (Sublimaze) 50 mcg PACU ODER PRN IV MODERATE PAIN LEVEL 4-6 02/28/17 09:30 02/28/17 11:50 DC Fentanyl (Sublimaze) 75 mcg PACU ORDER PRN IV SEVERE PAIN LEVEL 7-10 02/28/17 09:30 02/28/17 11:50 DC 02/28/17 09:40 Ketorolac Tromethamine (Toradol) 30 mg PACU ORDER PRN IV FOR PAIN AFTER IV NARCOTIC MED 02/28/17 09:30 02/28/17 11:50 DC Oxycodone/ Acetaminophen (Percocet (5/ 325)) 1 tab PACU ORDER PRN PO PAIN LEVEL 1-5 02/28/17 09:30 02/28/17 11:50 DC Oxycodone/ Acetaminophen (Percocet (5/ 325)) 2 tab PACU ORDER PRN PO PAIN LEVEL 6-10 02/28/17 09:30 02/28/17 11:50 DC Ondansetron HCl (Zofran Inj) 4 mg PACU ORDER PRN IV NAUSEA AND/OR VOMITING 02/28/17 09:30 02/28/17 11:50 DC Labetalol HCl (Labetalol) 5 mg PACU ORDER PRN IV HIGH BLOOD PRESSURE 02/28/17 09:30 02/28/17 11:50 DC Hydralazine HCl (Apresoline) 5 mg PACU ORDER PRN IV HIGH BLOOD PRESSURE 02/28/17 09:30 02/28/17 11:50 DC Ephedrine Sulfate 5 mg PACU ORDER PRN IV MAP LESS THAN 60 02/28/17 09:30 02/28/17 11:50 DC Meperidine HCl (Demerol) 25 mg PACU ORDER PRN IV POST-OP RIGORS 02/28/17 09:30 02/28/17 11:50 DC Diphenhydramine HCl 25 mg 25 mg PACU ORDER PRN IV PRURITUS 02/28/17 09:30 02/28/17 11:50 DC Ampicillin 50 ml @ 100 mls/hr Q4H IV 02/28/17 11:00 02/28/17 12:53 DC Ampicillin 100 ml @ 100 mls/hr ONCE ONCE IV 02/28/17 10:00 02/28/17 11:55 DC Cefazolin Sodium/ Dextrose 50 ml @ 100 mls/hr ONCE STAT IVPB 02/28/17 09:51 02/28/17 12:17 DC Lactated Ringer's 1,000 ml @ 125 mls/hr Q8H IV 02/28/17 09:51 03/01/17 06:35 Lactated Ringer's 1,000 ml @ 2,000 mls/hr Q30M PRN IV PRE-EPIDURAL BOLUS 02/28/17 09:51 02/28/17 12:54 DC Magnesium Sulfate 500 ml @ 50 mls/hr Q10H IV 02/28/17 09:51 02/28/17 11:55 DC Magnesium Sulfate 100 ml @ 200 mls/hr ONCE ONCE IV 02/28/17 10:00 02/28/17 11:56 DC Oxytocin/Lactated Ringer's 500 ml @ 125 mls/hr ONCE IV 02/28/17 10:00 02/28/17 12:46 Oxytocin/Lactated Ringer's 500 ml @ 0 mls/hr ONCE PRN IV For Hemorrhage Management 02/28/17 10:00 Oxytocin/Lactated Ringer's 500 ml @ 125 mls/hr ONCE -MAY REPEAT X1 IV 02/28/17 10:00 02/28/17 12:54 DC Betamethasone Acet/Betameth SodPhos (Celestone Soluspan) 12 mg Q12H IM 02/28/17 10:00 02/28/17 12:38 DC Betamethasone Acet/Betameth SodPhos (Celestone Soluspan) 12 mg Q12 IM 02/28/17 10:00 02/28/17 12:38 DC Carboprost Tromethamine (Hemabate) 250 mcg ONCE PRN IM VAGINAL BLEEDING 02/28/17 10:00 Diphenhydramine HCl (Benadryl) 25 mg PACU ORDER PRN IV PRURITUS 02/28/17 10:00 02/28/17 13:21 DC Ephedrine Sulfate 5 mg PACU ORDER PRN IV MAP LESS THAN 60 02/28/17 10:00 02/28/17 12:54 DC Fentanyl (Sublimaze) 25 mcg PACU ORDER PRN IV MILD PAIN LEVEL 1-3 02/28/17 10:00 02/28/17 12:36 DC Fentanyl (Sublimaze) 50 mcg PACU ODER PRN IV MODERATE PAIN LEVEL 4-6 02/28/17 10:00 02/28/17 12:36 DC Fentanyl (Sublimaze) 75 mcg PACU ORDER PRN IV SEVERE PAIN LEVEL 7-10 02/28/17 10:00 02/28/17 12:36 DC Hydralazine HCl (Apresoline) 5 mg PACU ORDER PRN IV HIGH BLOOD PRESSURE 02/28/17 10:00 02/28/17 13:21 DC Ketorolac Tromethamine (Toradol) 30 mg PACU ORDER PRN IV FOR PAIN AFTER IV NARCOTIC MED 02/28/17 10:00 02/28/17 13:21 DC Labetalol HCl (Labetalol) 5 mg PACU ORDER PRN IV HIGH BLOOD PRESSURE 02/28/17 10:00 02/28/17 13:21 DC Lidocaine (Xylocaine 1% (Mpf)) 30 ml ONCE PRN INJ EPISIOTOMY/TEARING 02/28/17 10:00 02/28/17 12:54 DC Magnesium Sulfate (Magnesium Sulfate) 4 gm ONCE STAT IM 02/28/17 09:51 02/28/17 13:21 DC Meperidine HCl (Demerol) 25 mg PACU ORDER PRN IV POST-OP RIGORS 02/28/17 10:00 02/28/17 12:36 DC Methylergonovine Maleate (Methergine) 0.2 mg ONCE PRN IM VAGINAL BLEEDING 02/28/17 10:00 02/28/17 12:54 DC Misoprostol (Cytotec) 1,000 mcg ONCE PRN VT VAGINAL BLEEDING 02/28/17 10:00 Morphine Sulfate (morphine (REC)) 2 mg PACU ORDER PRN IV MILD PAIN LEVEL 1-3 02/28/17 10:00 02/28/17 13:21 DC Morphine Sulfate (morphine (REC)) 4 mg PACU ORDER PRN IV MODERATE PAIN LEVEL 4-6 02/28/17 10:00 02/28/17 13:21 DC Morphine Sulfate (morphine (REC)) 6 mg PACU ORDER PRN IV SEVERE PAIN LEVEL 7-10 02/28/17 10:00 02/28/17 13:21 DC Ondansetron HCl (Zofran Inj) 4 mg PACU ORDER PRN IV NAUSEA AND/OR VOMITING 02/28/17 10:00 02/28/17 13:21 DC Oxycodone/ Acetaminophen (Percocet (5/ 325)) 1 tab PACU ORDER PRN PO PAIN LEVEL 1-5 02/28/17 10:00 02/28/17 13:21 DC Oxycodone/ Acetaminophen (Percocet (5/ 325)) 2 tab PACU ORDER PRN PO PAIN LEVEL 6-10 02/28/17 10:00 02/28/17 13:21 DC Terbutaline Sulfate (Brethine) 0.25 mg ONCE ONCE SC 02/28/17 10:00 02/28/17 13:21 DC Terbutaline Sulfate (Brethine) 0.25 mg ONCE STAT SC 02/28/17 09:51 02/28/17 13:21 DC Ibuprofen (Motrin) 600 mg Q6 PO 03/01/17 00:00 Simethicone (Mylicon) 160 mg Q8H PRN PO DISTENSION/GAS/BLOATING 02/28/17 13:00 Senna/Docusate Sodium (Senokot-S) 1 tab BID PO 03/01/17 09:00 03/01/17 08:56 Diphtheria/ Tetanus/Acell Pertussis (Adacel) 0.5 ml ONCE ONCE IM* 03/03/17 09:00 03/03/17 09:01 Ketorolac Tromethamine (Toradol) 30 mg Q8 PRN IV PAIN 02/28/17 13:30 03/03/17 13:29 02/28/17 16:27 is in NICU NAOMI IRVING MD Mar 01, 2017 11:36
[2017-03-01 12:16] LABS: RUBELLA ANTIBODY - IGG 1.21 index
[2017-03-01 12:24] VITALS: BP 122/80; PULSE 74; RESP 18
[2017-03-01] MEDS ORDERED: OXYCODONE/ACETAMINOPHEN (5/325) TAB PO PRN (12:30)
[2017-03-01 15:30] VITALS: BP 116/71; PULSE 78; RESP 20
[2017-03-01 20:45] VITALS: BP 119/57; PULSE 88; RESP 18
[2017-03-02 03:41] VITALS: BP 117/66; PULSE 83; RESP 19
[2017-03-02] MEDS: IBUPROFEN 600 MG TAB PO SCH ×2 (05:27→12:00)
[2017-03-02 08:00] VITALS: BP 127/80; PULSE 60; RESP 18
--- NOTE | 2017-03-02 08:25 | PN ---
Date/Time of Note Date/Time of Note DATE: 03/02/17 TIME: 08:24 OB Subjective Subjective Subjective Patient without complaints. OB Objective Objective Objective Gen: NAD Abd: I-C/D/I with bandage OB Assessment/Plan Other Assessment: POD2 s/p Other plan: Continue routine care. Anticipate discharge home tomorrow. MAKENZIE LE Mar 02, 2017 08:25
[2017-03-02] MEDS: SENNA/DOCUSATE NA (8.6MG/50MG) TAB PO SCH (09:00)
--- NOTE | 2017-03-02 17:51 | DS ---
Date/Time of Note Date/Time of Note DATE: 03/02/17 TIME: 17:48 Obstetrical Discharge Record Final Diagnosis Final Diagnosis: delivered Section Section: Repeat Complications No Care, Labor, Other Rupture of Membranes: Yes Gestational Age at Rupture 27 weeks Condition on Discharge Physical Assessment Voiding: Yes Breast: Soft, non-tender Fundus: Firm Abdomen and Incision: I-C/D/I Calf Tenderness: No Patient Condition: Good MAKENZIE LE Mar 02, 2017 17:51
[2017-03-03] MEDS ORDERED: DIPHTH/TET/ACEL PERTUSS (ADULT) 0.5 ML VIAL IM* ONE (09:00)
== END 2017-03-02 16:01 | disposition home or self-care (01) | DRG 765 ==
LOC: OBT 06:20 → L-D 06:25 → OBT 07:00 → L-D 07:38 → PP1 12:13
PROVIDERS: ADMIT Obstetrics & Gynecology; ATTEND Obstetrics & Gynecology
PROC: 10D00Z1 Extraction of Products of Conception, Low, Open Approach (ICD-10-PCS; principal; 2017-02-28 08:00)
DX: O60.12X0 Preterm labor second trimester with preterm delivery second trimester, not applicable or unspecified (principal); O99.322 Drug use complicating pregnancy, second trimester; Z37.0 Single live birth; Z3A.27 27 weeks gestation of pregnancy; F15.90 Other stimulant use, unspecified, uncomplicated; O32.1XX0 Maternal care for breech presentation, not applicable or unspecified; F12.90 Cannabis use, unspecified, uncomplicated; O76 Abnormality in fetal heart rate and rhythm complicating labor and delivery; O42.112 Preterm premature rupture of membranes, onset of labor more than 24 hours following rupture, second trimester
CPT/HCPCS: 76815; 80053; 80307; 81001; 84112; 84560; 85025; 85384; 85610; 85730; 86592; 86703; 86762; 86885; 86900; 86901; 87340; 88307; 94760; G0463; J0290; J0690; J0702; J1100; J1885; J2270; J2405; J2590; J2710; J3010; J3105; J3475; J7120; J7999